=== PATIENT | female | born 1955 | race Caucasian/White ===

== ENCOUNTER 2021-10-12 13:02 | Outpatient (CLI) | payer MEDICARE ==
[2021-10-13 00:10] LABS: SARS-CoV-2 PCR by NAA Not Detected (NotDetected)
== END 2021-10-12 13:03 | disposition home or self-care (01) ==
LOC: CSHLAB 13:02
PROVIDERS: ATTEND Internal Medicine Gastroenterology
DX: Z20.822 Contact with and (suspected) exposure to COVID-19 (principal); R10.9 Unspecified abdominal pain
CPT/HCPCS: U0003; U0005

== ENCOUNTER 2021-10-15 07:11 | Day surgery (SDC) | payer MEDICARE ==
[2021-10-12 14:31] VITALS: BMI 33.3
[2021-10-15] MEDS ORDERED: Lidocaine 1% MPF 2 ML VIAL ONE (08:47)
[2021-10-15] MEDS ORDERED: Lidocaine Viscous Sol 2% 15 ml UD Cup ONE (09:01)
== END 2021-10-15 10:32 | disposition home or self-care (01) ==
LOC: CSHSDC 07:11
PROVIDERS: ATTEND Internal Medicine Gastroenterology
PROC: 0DB68ZZ Excision of Stomach, Via Natural or Artificial Opening Endoscopic (ICD-10-PCS; principal; 2021-10-15)
DX: K29.80 Duodenitis without bleeding (principal); K44.9 Diaphragmatic hernia without obstruction or gangrene; K25.9 Gastric ulcer, unspecified as acute or chronic, without hemorrhage or perforation; E78.5 Hyperlipidemia, unspecified; M85.80 Other specified disorders of bone density and structure, unspecified site; K58.9 Irritable bowel syndrome, unspecified
CPT/HCPCS: 36416; 88305

== ENCOUNTER 2021-11-30 09:53 | Outpatient (CLI) | payer MEDICARE | END 2021-11-30 09:54 | disposition home or self-care (01) | LOC: CSHMAMMO 09:53 | PROVIDERS: ATTEND Family Medicine | DX: Z12.31 Encounter for screening mammogram for malignant neoplasm of breast (principal); Z13.820 Encounter for screening for osteoporosis; Z78.0 Asymptomatic menopausal state | CPT/HCPCS: 77063; 77067; 77080 ==

== ENCOUNTER 2022-12-02 09:30 | Outpatient (CLI) | payer MEDICARE | END 2022-12-02 09:31 | disposition home or self-care (01) | LOC: CSHMAMMO 09:30 | PROVIDERS: ATTEND Family Medicine | DX: Z12.31 Encounter for screening mammogram for malignant neoplasm of breast (principal) | CPT/HCPCS: 77063; 77067 ==

== ENCOUNTER 2023-12-05 09:40 | Outpatient (CLI) | payer MEDICARE | END 2023-12-05 09:41 | disposition home or self-care (01) | LOC: CSHMAMMO 09:40 | PROVIDERS: ATTEND Family Medicine | DX: Z12.31 Encounter for screening mammogram for malignant neoplasm of breast (principal); Z13.820 Encounter for screening for osteoporosis; E28.39 Other primary ovarian failure; M85.89 Other specified disorders of bone density and structure, multiple sites; Z78.0 Asymptomatic menopausal state | CPT/HCPCS: 77063; 77067; 77080 ==